=== PATIENT | female | born 1960 | race Caucasian/White ===

== ENCOUNTER 2020-01-13 18:06 | Observation (INO) | payer MEDICARE ==
[~2020-01-13] VITALS: Ht 160 cm; Wt 85.9 kg
--- NOTE | 2020-01-13 18:41 | NUR ---
PT PROVIDED WITH PILLOW FOR RIGHT ARM. PT OXYGEN SATURATION TITRATED DOWN TO 6L, O2 SATS AT 96%.
--- NOTE | 2020-01-13 18:55 | NUR ---
REPORT GIVEN TO TERRA ZHU.
--- NOTE | 2020-01-13 19:23 | NUR ---
MAGALIE GILES [phone]
--- NOTE | 2020-01-13 20:56 | NUR ---
PT UP TO BS COMMODE WITH STEADY GAIT.
[2020-01-13] MEDS ORDERED: HYDROcodone/APAP 5/325 TABLET ONE (21:06)
[2020-01-13] MEDS: HYDROcodone/APAP 5/325 TABLET PO PRN (21:08)
[2020-01-13 21:41] LABS: MEAN CORPUSCULAR HGB CONC 33.2 g/dL (32.4-35.8); MEAN PLATELET VOLUME 8.9 fL (7.4-10.4); PLATELET COUNT 230 x10^3/uL (130-400); RED CELL DISTRIBUTION WIDTH 14.4 % (9.6-15.2)
[2020-01-13 21:45] LABS: ANION GAP 6 mmol/L (5-15); CALCIUM 8.5 mg/dL (8.5-10.1); CHLORIDE 97 mmol/L (98-107); CREATININE 0.91 mg/dL (0.55-1.02)
[2020-01-13 22:11] LABS: MD YES
[2020-01-13 22:13] LABS: <PLATELET ESTIMATE> ADEQUATE; <PLT MORPHOLOGY> NORMAL PLT MORPH; BAND#(MANUAL) 0.86 x10^3/uL; BANDS%(MANUAL) 6 % (0-7); LYMPH#(MANUAL) 0.43 x10^3/uL (1-3.4); LYMPHS% (MANUAL) 3 % (22-44); MONOS#(MANUAL) 0.72 x10^3/uL (0.3-2.7); MONOS% (MANUAL) 5 % (2-9); SEG#(MANUAL) 12.38 x10^3/uL (1.8-6.8); SEGS% (MANUAL) 86 % (42-75)
[2020-01-13 22:14] LABS: ANISOCYTOSIS 1+
[2020-01-13] MEDS ORDERED: DEXL60CA2 PO (22:15)
[2020-01-13] MEDS ORDERED: METO5TAB PO (22:15)
[2020-01-13] MEDS ORDERED: LIOT5TAB11 PO (22:15)
[2020-01-13] MEDS ORDERED: ATOR-2 PO (22:15)
[2020-01-13] MEDS ORDERED: QUET200T79 PO (22:15)
[2020-01-13] MEDS ORDERED: VENL75TA2 PO (22:15)
[2020-01-13] MEDS ORDERED: LEVO112T2 PO (22:15)
[2020-01-13] MEDS ORDERED: ALEN70TA3 PO (22:15)
[2020-01-13] MEDS ORDERED: ORPH100T PO (22:15)
[2020-01-13 23:00] VITALS: BP 142/83
[2020-01-13] MEDS: ACETAMINOPHEN 325 MG TABLET PO PRN (23:29)
[2020-01-14 00:22] VITALS: BP 123/76
[2020-01-14] MEDS ORDERED: ATORVASTATIN 20 MG TABLET PO SCH ×2 (01:00→21:00)
[2020-01-14] MEDS ORDERED: QUETIAPINE 200 MG TABLET PO SCH ×2 (01:00→09:00)
[2020-01-14] MEDS: HYDROcodone/APAP 5/325 TABLET PO PRN ×4 (01:10→13:54)
[2020-01-14] MEDS ORDERED: ONDANSETRON 2MG/ML, 2ML IVPush PRN (02:30)
[2020-01-14 05:30] VITALS: BP 136/74
[2020-01-14] MEDS ORDERED: LEVOTHYROXINE 112 MCG TABLET PO SCH (06:00)
[2020-01-14 07:35] VITALS: BP 113/73
[2020-01-14] MEDS ORDERED: LIOTHYRONINE 5 MCG TABLET PO SCH (09:00)
[2020-01-14] MEDS ORDERED: VENLAFAXINE 75 MG CAP ER PO SCH (09:00)
[2020-01-14 13:57] VITALS: BP 110/68
[2020-01-14] MEDS: ACETAMINOPHEN 325 MG TABLET PO PRN (14:42)
[2020-01-14] MEDS ORDERED: FLU VACC QS2020-21(6MOS UP)/PF 60MCG/0.5 ML SYR IM ONE (16:00)
== END 2020-01-14 16:33 | disposition home or self-care (01) ==
LOC: ED 18:36 → INTOOBSV 21:02 → EDIP 21:02 → 3N 22:55
PROVIDERS: ADMIT Family Medicine; ATTEND Internal Medicine
DX: J96.01 Acute respiratory failure with hypoxia (principal); J98.11 Atelectasis; E03.9 Hypothyroidism, unspecified; K22.70 Barrett's esophagus without dysplasia; K21.9 Gastro-esophageal reflux disease without esophagitis; M19.90 Unspecified osteoarthritis, unspecified site; M96.89 Other intraoperative and postprocedural complications and disorders of the musculoskeletal system; E78.5 Hyperlipidemia, unspecified; J98.6 Disorders of diaphragm; F39 Unspecified mood [affective] disorder; Z90.710 Acquired absence of both cervix and uterus; Z88.0 Allergy status to penicillin; Z79.899 Other long term (current) drug therapy; Z23 Encounter for immunization
CPT/HCPCS: 36415; 71045; 80048; 85025; 90686; 93005; 99284; G0008; G0378